=== PATIENT | female | born 1985 | race Caucasian/White ===

== ENCOUNTER 2018-12-22 13:04 | Emergency (ER) | payer OTHER ==
[2018-12-22 13:32] VITALS: TEMP 97.6
[2018-12-22] MEDS ORDERED: KETOROLAC TROMETHAMINE 30 MG/ML SOL ONE (14:06)
[2018-12-22] MEDS: KETOROLAC TROMETHAMINE 30 MG/ML SOL IV ONE (14:08)
[2018-12-22] MEDS: SODIUM CHLORIDE 0.9% FLUSH 10 ML SOL IV PRN (14:08)
[2018-12-22 14:15] VITALS: O2SAT 100
[2018-12-22 14:21] LABS: APPEARANCE,URINE Slightly Cloudy; BILIRUBIN,URINE 1+ (NEGATIVE); COLOR,URINE Dark yellow; GLUCOSE, URINE (UA) NEGATIVE (NEGATIVE); KETONES,URINE TRACE (NEGATIVE); LEUKOCYTE ESTERASE ,URINE NEGATIVE (NEGATIVE); NITRATE,URINE NEGATIVE (NEGATIVE); OCCULT BLOOD,URINE NEGATIVE (NEG-TRACE); PH,URINE 6.5
[2018-12-22 14:27] LABS: HEMATOCRIT 40 % (35-47); MEAN CORPUSCULAR HEMOGLOBIN 26.5 pg (27.0-32.0); MEAN CORPUSCULAR HGB CONC 32.6 gm/dl (32.0-36.0)
[2018-12-22 14:28] LABS: BILIRUBIN,TOTAL 0.2 mg/dl (0.2-1.0); CALCIUM 8.3 mg/dl (8.5-10.1); CARBON DIOXIDE 28.9 mEq/L (21-32); CREATININE 0.8 mg/dl (0.60-1.00); POTASSIUM 3.4 mMol/L (3.5-5.1); TOTAL PROTEIN 6.8 gm/dl (6.4-8.2)
[2018-12-22 14:39] LABS: BACTERIA NEGATIVE (< 1+); CRYSTALS NEGATIVE (0-3 AVE/HPF); ICTOTEST,URINE NEGATIVE (NEGATIVE); RBC,URINE NEG (0-3AV/HPF); WBC,URINE 0-1 (0-5AV/HPF)
[2018-12-22 14:40] LABS: MEAN CORPUSCULAR VOLUME 81 fL (81-99)
[2018-12-22 14:55] LABS: BAND NEUTROPHILS % (MANUAL) 1 %; BASOPHILS % (MANUAL) 0 % (0-3); EOSINOPHILS % (MANUAL) 3 % (0-9); LYMPHOCYTES % (MANUAL) 35 % (10-50); MONOCYTES % (MANUAL) 5 % (0-12); NEUTROPHILS % (MANUAL) 56 % (37-80); NORMAL RBCS PRESENT
[2018-12-22 15:04] VITALS: BP 148/111; PULSE 77; RESP 16
[2018-12-22] MEDS ORDERED: POTASSIUM CHLORIDE 10 MEQ TER ONE (16:03)
[2018-12-22] MEDS: POTASSIUM CHLORIDE 10 MEQ TER PO ONE (16:05)
== END 2018-12-22 16:13 | disposition home or self-care (01) | DRG 313 ==
LOC: ED 13:04
DX: R07.89 Other chest pain (principal); R11.2 Nausea with vomiting, unspecified; D72.829 Elevated white blood cell count, unspecified
CPT/HCPCS: 36415; 71260; 74177; 80053; 81001; 82150; 84703; 85007; 85027; 96374; 99284; 99285; J1885; Q9967; A9270-GY

== ENCOUNTER 2019-01-04 05:36 | Emergency (ER) | payer OTHER ==
[2019-01-04 05:41] VITALS: RESP 18; TEMP 97.5
[2019-01-04] MEDS ORDERED: CYCLOBENZAPRINE 10 MG TAB PO ONE (05:58)
[2019-01-04] MEDS ORDERED: CYCLOBENZAPRINE 10 MG TAB ONE (06:00)
[2019-01-04 06:21] VITALS: BP 173/117; PULSE 99; O2SAT 97
== END 2019-01-04 06:19 | disposition home or self-care (01) | DRG 556 ==
LOC: ED 05:36
DX: M62.838 Other muscle spasm (principal)
CPT/HCPCS: 99282; A9270-GY